=== PATIENT | female | born 1935 | race Caucasian/White ===

== ENCOUNTER 2020-03-08 22:01 | Inpatient (IN) | payer MEDICARE ==
[~2020-03-08] VITALS: Ht 167.6 cm; Wt 61.7 kg
[2020-03-08] MEDS ORDERED: TYLENOL325 MG PO (22:08)
[2020-03-08] MEDS ORDERED: VITAMIN B-121000 MC2 SUBLING (22:09)
[2020-03-08] MEDS ORDERED: PLAVIX 75 MG TA75 MG PO (22:09)
[2020-03-08] MEDS ORDERED: NEXIUM20 M1 PO (22:09)
[2020-03-08] MEDS ORDERED: LEVO-T100 MCG PO (22:09)
[2020-03-08] MEDS ORDERED: LASIX 40 MG TAB40 MG PO (22:09)
[2020-03-08] MEDS ORDERED: LOPRESSOR50 MG PO (22:10)
[2020-03-08] MEDS ORDERED: MELATONIN5 MG SUBLING (22:10)
[2020-03-08] MEDS ORDERED: ZESTRIL20 MG PO (22:10)
[2020-03-08] MEDS ORDERED: SUPER THERAVIT1 EACH PO (22:10)
[2020-03-08] MEDS ORDERED: METFORMIN HCL500 M3 PO (22:10)
[2020-03-08] MEDS ORDERED: PAROXETINE HCL20 MG PO (22:11)
[2020-03-08] MEDS ORDERED: POTASSIUM20 PO (22:11)
[2020-03-08] MEDS ORDERED: CARAFATE1 GM PO (22:12)
[2020-03-08] MEDS ORDERED: SIMVASTATIN80 MG PO (22:12)
[2020-03-08 22:17] VITALS: BP 135/44
[2020-03-08 22:40] LABS: ABSOLUTE LYMPHOCYTES 2.5 thou/uL (0.8-5.3); ABSOLUTE MONOCYTES 1.7 thou/uL (0.0-1.2); ABSOLUTE NEUTROPHILS 9.3 thou/uL (1.6-8.1); BASOPHILS 0.3 %; EOSINOPHILS 0.1 %; HEMATOCRIT 29.2 % (37.0-47.0); LYMPHOCYTES 18.5 %; MCH 34.6 pg (26.0-34.0); MCHC 34.3 g/dL (28.0-37.0); MONOCYTES 12.6 %; MPV 8.5 fl. (7.2-11.1); NUCLEATED RBCS 0 /100WBC; PLATELET COUNT* 246 thou/uL (150-400); POLYS 68.5 %; RBC 2.89 mil/uL (4.20-5.00); RDW-CV 13.2 % (10.5-14.5); WBC 13.5 thou/uL (4.0-11.0)
[2020-03-08 22:49] LABS: CALCIUM 8.8 mg/dL (8.5-10.1); CREATININE 1.1 mg/dL (0.6-1.3); POTASSIUM 4.7 mmol/L (3.5-5.1)
[2020-03-08 22:51] LABS: INR 1.1
[2020-03-08 23:00] LABS: ALBUMIN 3.3 g/dL (3.4-5.0); TOTAL BILIRUBIN 0.4 mg/dL (<0.1-1.0); TOTAL PROTEIN 7.4 g/dL (6.4-8.2)
[2020-03-08 23:25] LABS: URINE BILIRUBIN NEGATIVE (Negative); URINE BLOOD 1+ (Negative); URINE CLARITY CLOUDY; URINE COLOR YELLOW; URINE GLUCOSE-RANDOM NEGATIVE (Negative); URINE KETONES NEGATIVE (Negative); URINE LEUKOCYTES-REFLEX 2+ (Negative); URINE NITRITE-REFLEX NEGATIVE (Negative); URINE PROTEIN NEGATIVE (Negative); URINE UROBILINOGEN 0.2 E.U./dl (0.2-1.0)
[2020-03-08 23:31] LABS: BACTERIA-REFLEX >30 Many /HPF (None Seen); CASTS None Seen /LPF (None Seen); CRYSTALS None Seen /LPF (None Seen); MUCUS 0-3 Light strn/LPF (None Seen); SQUAMOUS 0-3 Few /LPF (0-3); URINE RBC 3-10 Few /HPF (0-2); URINE WBC-REFLEX >25 Many /HPF (0-5); WBC CLUMPS Moderate (None Seen)
[2020-03-09] VITALS (7 sets, daily range): BP systolic 113–198; BP diastolic 35–76
--- NOTE | 2020-03-09 07:30 | NUR ---
PT RECIEVED FROM ED IN ROOM 211. ALERT AND ORIENTED X4. NIH DONE AND CHARTED. PT HAS EXPRESSIVE APHASIA. SAT MAINTAINED IN RA. DENIES PAIN AND SOB. CALL LIGHT WITHIN REACH AND BED IN LOW POSITION. HOURLY ROUNDING DONE FOR PT SAFETY.
--- NOTE | 2020-03-09 13:16 | NUR ---
ASSUMED CARE OF PT APPROX 0730. REASSESMEN COMPLETED CHARTED. MEDICATIONS GIVEN CHARTED. SPOKE WITH PTS DAUGHTER THIS AM ABOUT PLAN OF CARE. PT UP TO BATHROOM THIS AM WITH CANE AND STAND BY ASSIST. SAFTEY PRECAUTIONS UTILIZED, HOURLY ROUNDING. TELE MONITORING.
[2020-03-10 03:07] LABS: GLYCOHEMOGLOBIN (HGB A1C) 6.1 % (4.8-5.6)
[2020-03-10 03:57] VITALS: BP 138/54
[2020-03-10 04:25] LABS: HEMATOCRIT 25.6 % (37.0-47.0); HEMOGLOBIN 8.9 gm/dL (12.0-15.0); MCH 35.1 pg (26.0-34.0); MCHC 34.8 g/dL (28.0-37.0); MCV 100.9 fL (80.0-100.0); MPV 8.4 fl. (7.2-11.1); RBC 2.53 mil/uL (4.20-5.00); WBC 9.4 thou/uL (4.0-11.0)
--- NOTE | 2020-03-10 04:28 | NUR ---
PT SLEPT MOST OF SHIFT. ASSESSMENT DOCUMENTED. MEDS GIVEN PER E-MAR. IV PATENT, MAGNESIUM REPLACED PER ORDERS. NO REPORTS OF PAIN. FALL PRECAUTIONS IN PLACE. PTS DTR CALLED THIS SHIFT ASKING IF PT WAS GOING TO GET AN MRI, STATING THAT SHE WANTS HER MOM TO GET ONE. WILL CONTINUE WITH PLAN OF CARE.
[2020-03-10 04:41] LABS: ALBUMIN 2.8 g/dL (3.4-5.0); CALCIUM 8.5 mg/dL (8.5-10.1); POTASSIUM 4.5 mmol/L (3.5-5.1); TOTAL BILIRUBIN 0.3 mg/dL (<0.1-1.0); TOTAL PROTEIN 6.1 g/dL (6.4-8.2)
[2020-03-10 08:00] VITALS: BP 132/45
[2020-03-10 11:50] VITALS: BP 118/48
--- NOTE | 2020-03-10 14:44 | EKG ---
[place] [address] ELECTROCARDIOGRAM REPORT Name: CELY MCNALLY JO Room: 211- ADM IN M.R.#: [id number] Admission: 03/08/20 Attend Phys: Carlie Gonzalez, Discharge: Date of : 33 Date of Service: 03/08/20 2259 Report #: [id number] THIS REPORT FOR: //name// [facility] [place] ED Test Date: 2020-03-08 Test Time: 22:59:21 Pat Name: CELY MCNALLY Department: Room: [facility] Gender: F Mica Builder: BIANCA : 1935 Requested By: Ambar Lopes Order Number: [id number] MD: Stone Austin Measurements Intervals [place] Rate: 73 P: 204 TX: 336 QRS: -1 QRSD: 104 T: 46 QT: 407 QTc: 449 Interpretive Statements Sinus or ectopic atrial rhythm Prolonged TX interval No previous ECG available for comparison Electronically Signed On 03-10-2020 14:42:24 CDT by Stone Austin [email or web address] <ELECTRONICALLY SIGNED> By: Stone Austin MD, [facility] 03/10/20 1442 2259 2259 Stone Austin MD, [facility] /EPI
[2020-03-10 16:54] VITALS: BP 141/53
--- NOTE | 2020-03-10 18:54 | NUR ---
DANIEL RESTING IN BED. UP WITH STANDBY ONLY ASSIST. AOX4 BUT HARD OF HEARING WITHOUT HER HEARING AIDS. GOOD APPETITE. SR ON MONITOR,. HOURLKY ROUNDING COMPLETED FOR [place]ENT[place] SAFETY.
[2020-03-10 20:00] VITALS: BP 139/47
[2020-03-11 00:33] VITALS: BP 152/56
[2020-03-11 04:09] VITALS: BP 139/52
--- NOTE | 2020-03-11 05:52 | NUR ---
ASSESSMENTS COMPLETED AT BEDSIDE, PLEASE REFER TO CHARTING FOR DETAILS. MEDICATIONS ADMINISTERED PER MAR. NO C/O PAIN OR DISCOMFORT NOTED BY PT. HOURLY ROUNDING COMPLETED FOR SAFETY, CURRENTLY ASLEEP IN BED WITH BED ALARM ON AND CALL LIGHT WITHIN REACH.
[2020-03-11 08:00] VITALS: BP 176/64
[2020-03-11 12:01] VITALS: BP 178/50
--- NOTE | 2020-03-11 14:50 | 2DMMODE ---
[place] [address] 2 D/M-MODE ECHOCARDIOGRAM Name: CELY MCNALLY JO Room: [address] IN [facility].#: [id number] Admission: 03/08/20 Attend Phys: Carlie Gonzalez, Discharge: Date of : 33 Date of Service: 03/11/20 1448 Report #: [id number] THIS REPORT FOR: cc: Lionel Ware Bradley L. DO Blick, David R. MD [facility] ~ APPROVED REPORT Study performed: 03/11/2020 10:48:25 EXAM: Comprehensive 2D, Doppler, and color-flow Echocardiogram Patient Location: In-Patient Room #: [facility] Status: routine BSA: 1.70 HR: 71 bpm BP: 176/64 mmHg Rhythm: NSR Other Information Study Quality: Good Indications CVA/TIA Echo Enhancing Agent Indication: Rule out Shunt Agent(s) / Amount(s) Used: Agitated Saline 10 cc 2D Dimensions IVSd: 13.00 (7-11mm) LVOT Diam: 18.84 (18-24mm) LVDd: 42.50 mm PWd: 10.27 (7-11mm) Ascending Ao: 30.43 (22-36mm) LVDs: 28.21 (25-40mm) Aortic Root: 31.38 mm Volumes Left Atrial Volume (Systole) LA ESV Index: 33.10 mL/m2 Aortic Valve AoV Peak Vladimir.: 1.57 m/s AO Peak Gr.: 9.84 mmHg LVOT Max P.89 mmHg AO Mean Gr.: 5.63 mmHg LVOT Mean P.98 [place] [address] 2 D/M-MODE ECHOCARDIOGRAM Name: CELY MCNALLY JO Room: [address] IN .R.#: [id number] Admission: 03/08/20 Attend Phys: Carlie Gonzalez, Discharge: Date of : 33 Date of Service: 03/11/20 1448 Report #: [id number] LVOT Max V: 0.69 m/s AO V2 VTI: 35.23 cm LVOT Mean V: 0.46 m/s BOBY (VTI): 1.35 cm2 LVOT V1 VTI: 17.02 cm Mitral Valve E/A Ratio: 2.50 MV Decel. Time: 136.75 ms MV E Max Vladimir.: 1.38 m/s MV PHT: 39.66 ms MVA (PHT): 5.55 cm2 TDI E/Lateral E': 8.63 E/Medial E': 11.50 Medial E' Vladimir.: 0.12 m/s Lateral E' Vladimir.: 0.16 m/s Pulmonary Valve PV Peak Vladimir.: 1.05 m/s PV Peak Gr.: 4.45 mmHg Tricuspid Valve RAP Estimate: 5.00 mmHg TR Peak Gr.: 41.44 mmHg RVSP: 46.00 mmHg PA Pressure: 46.00 mmHg Left Ventricle The left ventricle is normal size. There is normal LV segmental wall motion. Borderline concentric left ventricular hypertrophy. Left ventricular systolic function is normal. The left ventricular ejection fraction is within the normal range. LVEF is 55-60%. Grade IV - fixed restrictive diastolic dysfunction. Right Ventricle The right ventricle is normal size. The right ventricular systolic function is normal. Atria The left atrium size is normal. Interatrial septum is intact without evidence of ASD or PFO. Right atrium is dilated. Aortic Valve Moderate aortic valve sclerosis. No aortic regurgitation is present. There is no aortic valvular stenosis. Mitral Valve The mitral valve is normal in structure. There is mild mitral valve regurgitation noted. No evidence of mitral valve [place] [address] 2 D/M-MODE ECHOCARDIOGRAM Name: CELY MCNALLY Room: [address] IN M.R.#: [id number] Admission: 03/08/20 Attend Phys: Carlie Gonzalez, Discharge: Date of : 33 Date of Service: 03/11/20 1448 Report #: [id number] Tricuspid Valve The tricuspid valve is normal in structure. Moderate tricuspid regurgitation. estimated pa pressure 50 mm Hg Pulmonic Valve The pulmonary valve is normal in structure. Mild pulmonic regurgitation. Great Vessels The aortic root is normal in size. IVC is normal in size and collapses >50% with inspiration. Pericardium There is no pericardial effusion. <Conclusion> LVEF is 55-60%. Moderate aortic valve sclerosis. There is mild mitral valve regurgitation noted. Moderate tricuspid regurgitation. estimated pa pressure 50 mm Hg Interatrial septum is intact without evidence of ASD or PFO. <ELECTRONICALLY SIGNED> By: Teja Montero MD, [facility] 03/11/20 1448 1448 1448 Teja Montero MD, FACC /INF
[2020-03-11 16:36] VITALS: BP 172/69
--- NOTE | 2020-03-11 17:05 | NUR ---
Pt lives at home alone. Pt has a cane. Pt has supportive dtr and family. No known hx of HH or SNF. SW/CM to remain available to assist with safe dc planning if needs arise.
[2020-03-11] MEDS ORDERED: CIPRO500 M1 PO (18:20)
[2020-03-11 18:21] VITALS: BP 172/69
--- NOTE | 2020-03-11 19:16 | NUR ---
PT. AOX4, VSS, SR 1D AVB ON MONITOR, UP AD JULIANNE WITH CANE, STANDBY ASSIST, R LIMB ALERT S/P R MASTECTOMY. HOURLY ROUNDING PERFORMED. DISCHARGE PAPERWORK AND CARENOTES PROVIDED. DIET, ACTIVITY AND MEDICATIONS EXPLAINED. IV DCED WITHOUT COMPLICATION. PRESCRIPTIONS CALLED IN TO PHARMACY PER PATIENT FAMILY REQUEST. PT. WHEELED TO HOSPITAL ENTRANCE BY WHEELCHAIR AND PICKED UP BY CAR BY DAUGHTER.
--- NOTE | 2020-03-12 11:36 | NUR ---
AMMENDMENT TO NURSING NOTE PROVIDED BY RN, JERO YEPEZ AT TIME OF DISCHARGE DR PATTERSON WROTE DISCHARGE ORDERS PENDING RELEASE OF NEURO. AFTER MRI OF HEAD AND US OF CORATIDS, I CALLED NEURO DR. HUMAN RESOURCES ASSISTANT MANAGER DR. SUMMERS. UPON HEARING IMPRESSIONS OF DIAGNOSTICS, DR SUMMERS SAID BASED ON IMPRESSIONS IT WAS ACCEPTABLE TO RELEASE PT FROM A NEUROLOGICAL STANDPOINT THAT TIME.
[2020-03-13 18:08] LABS: GLOBULIN TOTAL 3.2 g/dL (2.2-3.9); M-SPIKE Not Observed g/dL (Not Observed)
== END 2020-03-11 18:55 | disposition home or self-care (01) | DRG 689 ==
LOC: EDSEX 22:01 → M.ERS 22:01 → M.TBA-ER 23:58 → M.2W 23:58
PROVIDERS: Internal Medicine; Personal Emergency Response Attendant; Psychiatry & Neurology Neurology; ADMIT Internal Medicine
DX: N39.0 Urinary tract infection, site not specified (principal); G93.41 Metabolic encephalopathy; R65.10 Systemic inflammatory response syndrome (SIRS) of non-infectious origin without acute organ dysfunction; E87.2 Acidosis; R47.01 Aphasia; I65.22 Occlusion and stenosis of left carotid artery; B96.20 Unspecified Escherichia coli [E. coli] as the cause of diseases classified elsewhere; I25.10 Atherosclerotic heart disease of native coronary artery without angina pectoris; E11.51 Type 2 diabetes mellitus with diabetic peripheral angiopathy without gangrene; E11.40 Type 2 diabetes mellitus with diabetic neuropathy, unspecified; E03.9 Hypothyroidism, unspecified; E78.5 Hyperlipidemia, unspecified; I10 Essential (primary) hypertension; R54 Age-related physical debility; Z60.2 Problems related to living alone; Z79.84 Long term (current) use of oral hypoglycemic drugs; Z79.899 Other long term (current) drug therapy; Z88.1 Allergy status to other antibiotic agents; Z88.0 Allergy status to penicillin; Z88.8 Allergy status to other drugs, medicaments and biological substances; Z90.12 Acquired absence of left breast and nipple; Z95.1 Presence of aortocoronary bypass graft